=== PATIENT | female | born 1980 | race Caucasian/White ===

== ENCOUNTER 2018-02-25 08:55 | Emergency (ER) | payer OTHER, MEDICAID ==
[~2018-02-25] VITALS: Ht 160 cm; Wt 56.0 kg
[2018-02-25 09:03] VITALS: BP 122/85
[2018-02-25] MEDS ORDERED: ketorolac tromethamine 15mg/ml inj. IM ONE (09:25)
[2018-02-25] MEDS ORDERED: NAPR-56 PO (10:24)
[2018-02-25] MEDS ORDERED: METH-360 PO (10:24)
== END 2018-02-25 10:50 | disposition home or self-care (01) ==
LOC: ER 08:56
DX: S29.012A Strain of muscle and tendon of back wall of thorax, initial encounter (principal); M43.6 Torticollis; G89.29 Other chronic pain; Z79.899 Other long term (current) drug therapy; V43.52XA Car driver injured in collision with other type car in traffic accident, initial encounter; Y93.89 Activity, other specified; Y92.410 Unspecified street and highway as the place of occurrence of the external cause; Y99.8 Other external cause status
CPT/HCPCS: 72125; 72128; 72131; 96372; 99284; J1885; L0172

== ENCOUNTER 2022-10-09 00:05 | Emergency (ER) | payer MEDICAID ==
[~2022-10-09 00:05] MED LIST: METH-360 PO
== END 2022-10-09 01:36 | disposition left against medical advice (07) ==
LOC: ER 00:06
DX: M79.605 Pain in left leg (principal); Z53.21 Procedure and treatment not carried out due to patient leaving prior to being seen by health care provider

== ENCOUNTER 2024-01-29 15:43 | Emergency (ER) | payer MEDICAID, OTHER ==
[~2024-01-29] VITALS: Ht 162.6 cm; Wt 59.1 kg
[2024-01-29 15:45] VITALS: BP 129/90; PULSE 118; RESP 18; TEMP 97.7; O2SAT 97
== END 2024-01-29 16:18 ==
LOC: ER 15:43
DX: G89.29 Other chronic pain (principal); Z79.899 Other long term (current) drug therapy
CPT/HCPCS: 99283